=== PATIENT | female | born 1995 | race Caucasian/White ===

== ENCOUNTER 2017-07-25 13:48 | Emergency (ER) | payer OTHER ==
--- NOTE | 2017-07-25 13:57 | UC ---
Abdominal Pain Female HPI - HPI Summary HPI Summary: 21 YEAR OLD FEMALE PRESENTS WITH COMPLAINS OF RUQ AND VOMITTING AFTER DRINKING LAST NIGHT. - History of Current Complaint Chief Complaint: UCGeneralIllness Stated Complaint: VOMITING Time Seen by Provider: 07/25/17 13:56 Hx Obtained From: Patient Hx Last Menstrual Period: 07/09/17 Onset/Duration: Lasting Hours Severity Initially: Moderate Severity Currently: Moderate Pain Scale Used: 0-10 Numeric - 5 Location: Discrete At: RUQ Character: Aching Aggravating Factor(s): Food Alleviating Factor(s): Nothing Allergies/Adverse Reactions: Allergies Allergy/AdvReac Type Severity Reaction Status Date / Time No Known Allergies Allergy Verified 07/25/17 13:50 Home Medications: Home Medications Loestrin 11/13- 1-20 mg-Mcg 1 tab PO DAILY 07/25/17 [History Confirmed 07/25/17 ] PMH/Surg Hx/FS Hx/Imm Hx Previously Healthy: Yes - Surgical History Surgical History: None - Social History Alcohol Use: Occasionally Substance Use Type: None Smoking Status (MU): Never Smoked Tobacco Review of Systems Constitutional: Negative Skin: Negative Eyes: Negative ENT: Negative Respiratory: Negative Cardiovascular: Negative Gastrointestinal: Abdominal Pain, Vomiting - RUQ Genitourinary: Negative Motor: Negative Neurovascular: Negative Musculoskeletal: Negative Neurological: Negative Psychological: Negative All Other Systems Reviewed And Are Negative: Yes Physical Exam Triage Information Reviewed: Yes Vital Signs: Initial Vital Signs Temp 36.6 C 07/25/17 13:52 Pulse 110 07/25/17 13:52 Resp 20 07/25/17 13:52 Pulse Ox 100 07/25/17 13:52 Vital Signs Reviewed: Yes Eye Exam: Normal ENT Exam: Normal Dental Exam: Normal Neck exam: Normal Neck: Positive: 1 Respiratory Exam: Normal Cardiovascular Exam: Normal Abdomen Description: Positive: Other: - RUQ PAIN Musculoskeletal Exam: Normal Neurological Exam: Normal Psychological Exam: Normal Skin Exam: Normal Abd Pain Female Course/Dx - Differential Dx/Diagnosis Provider Diagnoses: VOMITTING. RUQ PAIN Discharge - Discharge Plan Condition: Stable Disposition: HOME Prescriptions: Ondansetron ODT TAB* [Zofran 4 MG Odt TAB*] 4 mg PO Q8H PRN #9 tab.odt PRN Reason: Nausea - Refractory Patient Education Materials: Acute Nausea and Vomiting (ED) Referrals: Non Staff,Doctor [Primary Care Provider] - Additional Instructions: PATIENT SUGGESTED TO GO TO ER FOR WORSENING RUQ PAIN.
[2017-07-25] MEDS ORDERED: Ondansetron TAB* 4 MG PO ONE (14:20)
[2017-07-25] MEDS ORDERED: Ondansetron ODT TAB* 4 MG PO ONE ×2 (14:28→14:29)
[2017-07-25] MEDS ORDERED: NS 0.9% 1000 ML* 1,000 ML IV ONE (15:34)
[2017-07-25 15:53] VITALS: BP 110/55
== END 2017-07-25 16:25 | disposition home or self-care (01) ==
LOC: UCEAST 13:48
DX: R11.10 Vomiting, unspecified (principal); R52 Pain, unspecified; Z32.02 Encounter for pregnancy test, result negative
CPT/HCPCS: 81003; 84702; 96360; 99202; A9270-GY; G0463

== ENCOUNTER 2017-07-25 16:53 | Emergency (ER) | payer OTHER ==
[2017-07-25 19:03] LABS: Hematocrit 37 % (35-47); Hemoglobin 12.7 g/dl (12.0-16.0); Mean Corpuscular HGB Conc 34 g/dl (31-36); Mean Corpuscular Hemoglobin 30 pg (27-31); Mean Corpuscular Volume 88 fL (80-97); Mean Platelet Volume 7 um3 (7.4-10.4); Red Blood Count 4.23 10^6/ul (4.0-5.4); Red Cell Distribution Width 13 % (10.5-15); White Blood Count 19.6 10^3/ul (3.5-10.8)
[2017-07-25 19:17] LABS: Albumin 4.4 g/dL (3.2-5.2); C Reactive Protein 6.27 mg/L (< 5.00); EGFR African American 119.9 (>60); EGFR Non-African American 93.2 (>60); Globulin 3.3 g/dL (2-4); Potassium 3.6 mmol/L (3.5-5.0); Total Bilirubin 0.4 mg/dL (0.2-1.0); Total Protein 7.7 g/dL (6.4-8.9)
[2017-07-25] MEDS ORDERED: NS 0.9% 1000 ML* 1,000 ML IV ONE (20:53)
[2017-07-25] MEDS ORDERED: Lidocaine 2% VISCOUS* 15 ML UDC PO ONE (21:04)
[2017-07-25] MEDS ORDERED: Al Hydrox/Mg Hydrox/Simet LIQ* 30 ML UDC PO ONE (21:04)
--- NOTE | 2017-07-25 21:43 | RAD ---
HISTORY: Right upper quadrant pain COMPARISONS: None TECHNIQUE: Multiple transverse and longitudinal ultrasound images were obtained of the right upper quadrant of the abdomen using grayscale and color Doppler imaging. FINDINGS: LIVER: The liver is normal in shape, size, contour, and echogenicity. There are no focal parenchymal masses. There is normal hepatopedal flow of the portal vein on Doppler imaging. BILIARY TREE: There is no intrahepatic or extrahepatic biliary dilatation. The common duct measures 0.3 cm. GALLBLADDER: The gallbladder is well-visualized. There is no cholelithiasis, gallbladder wall thickening, pericholecystic fluid, or sonographic Myers sign. PANCREAS: The head of the pancreas is unremarkable. The tail of the pancreas is not well visualized secondary to overlying bowel gas. RIGHT KIDNEY: The right kidney is normal in shape, size, contour, and echogenicity. There is no hydronephrosis or nephrolithiasis. The right kidney measures 11.9 x 4.2 x 3.7 cm. AORTA AND IVC: The aorta and IVC are unremarkable. FLUID: There are no pleural effusions. There is no free fluid within the hepatorenal recess. OTHER FINDINGS: None. IMPRESSION: NO ACUTE SONOGRAPHIC PATHOLOGY OF THE VISUALIZED PORTION OF THE ABDOMEN
[2017-07-25] MEDS ORDERED: Omeprazole CAP* 20 MG PO ONE (21:49)
[2017-07-25] MEDS ORDERED: Ondansetron TAB* 4 MG PO ONE (21:59)
[2017-07-25 22:48] LABS: Urine Bacteria Absent (Absent); Urine Bilirubin Negative (Negative); Urine Glucose Negative (Negative); Urine Nitrite Negative (Negative)
[2017-07-25] MEDS ORDERED: Sulfamethox/Trimethoprim DS 800/160* TAB PO ONE (22:56)
[2017-07-25 23:31] VITALS: BP 112/60
--- NOTE | 2017-07-30 13:25 | ED ---
Akosua Castellanos Edward, scribed for Patrick Shepherd MD on 07/25/17 at 1833 . Abdominal Pain/Female - HPI Summary HPI Summary: 21 y/o female presents to ED sent from [facility] c/o chronic, intermittent RUQ ABD pain starting one year ago that resurfaced last night. The pain is aggravated when the pt sits down for a long time. Pt states that one year ago she bent down and felt something pop out; the pt then pushes it back in each time. Pt has had this occur 2-3 times in the past year. Pt also c/o N/V starting 01:00 last night and into the morning after EtOH consumption. N/V alleviated with Zofran at Urgent Care. Pt states that she had "never felt sick like that before ". Pt is still nauseous currently and the pain is described as discomfort. - History of Current Complaint Chief Complaint: EDAbdPain Stated Complaint: VOMITING Hx Obtained From: Patient Hx Last Menstrual Period: 07/09/17 Onset/Duration: Lasting Weeks - Chronic - 2-3x this past year Timing: Intermittent Episode Lasting Severity Currently: Severe Pain Intensity: 8 Pain Scale Used: 0-10 Numeric Location: Discrete At: RUQ Aggravating Factor(s): Other: - Sitting down for a long time Alleviating Factor(s): Nothing Associated Signs and Symptoms: Positive: Dizzy, Nausea, Vomiting Allergies/Adverse Reactions: Allergies Allergy/AdvReac Type Severity Reaction Status Date / Time No Known Allergies Allergy Verified 07/25/17 13:50 PMH/Surg Hx/FS Hx/Imm Hx Previously Healthy: No Respiratory History: Denies: Other Respiratory Problems/Disorders - Denies tuberculosis Opthamlomology History: Denies: Hx Legally Blind - Surgical History Surgery Procedure, Year, and Place: N/A Infectious Disease History: No Infectious Disease History: Denies: Hx Clostridium Difficile, Hx Hepatitis, Hx Human Immunodeficiency Virus (HIV), Hx of Known/Suspected MRSA, Hx Shingles, Hx Tuberculosis, Hx Known/ Suspected VRE, Hx Known/Suspected VRSA, History Other Infectious Disease, Traveled Outside the [place] in Last 30 Days - Family History Known Family History: Negative: Cardiac Disease, Hypertension, Diabetes - Social History Occupation: Student Lives: Dormitory/Roommates Alcohol Use: Occasionally Hx Substance Use: No Substance Use Type: Reports: None Hx Tobacco Use: No Smoking Status (MU): Never Smoked Tobacco Review of Systems Negative: Fever, Chills Negative: Erythema Negative: Sore Throat Negative: Chest Pain Negative: Shortness Of Breath, Cough Positive: Abdominal Pain, Vomiting, Nausea Negative: dysuria, hematuria Negative: Myalgia, Edema Negative: Rash Neurological: Other - Dizziness All Other Systems Reviewed And Are Negative: Yes Physical Exam - Summary Physical Exam Summary: Constitutional: Well-developed, Well-nourished, Alert. (-) Distressed Skin: Warm, Dry HENT: Normocephalic; Atraumatic Eyes: Conjunctiva normal Neck: Musculoskeletal ROM normal neck. (-) JVD, (-) Stridor, (-) Tracheal deviation Cardio: Rhythm regular, rate normal, Heart sounds normal; Intact distal pulses; The pedal pulses are 2+ and symmetric. Radial pulses are 2+ and symmetric. (-) Murmur Pulmonary/Chest wall: Effort normal. (-) Respiratory distress, (-) Wheezes, (-) Rales Abd: Soft, Epigastric tenderness most consistent with gastritis, (-) Distension , (-) Guarding, (-) Rebound. No palpable hernia. Musculoskeletal: (-) Edema Lymph: (-) Cervical adenopathy Neuro: Alert, Oriented x3 Psych: Mood and affect Normal Triage Information Reviewed: Yes Vital Signs On Initial Exam: Initial Vitals Temp Pulse Resp BP Pulse Ox 97.8 F 65 16 116/63 100 07/25/17 16:55 07/25/17 16:55 07/25/17 16:55 07/25/17 16:55 07/25/17 16:55 Vital Signs Reviewed: Yes Diagnostics - Vital Signs Vital Signs Temp Pulse Resp BP Pulse Ox 07/25/17 16:55 97.8 F 65 16 116/63 100 - Laboratory Result Diagrams: 07/25/17 18:51 07/25/17 18:51 Lab Statement: Any lab studies that have been ordered have been reviewed, and results considered in the medical decision making process. - Ultrasound No standard instances Ultrasound Interpretation: No Acute Changes - GALLBLADDER US - NO ACUTE SONOGRAPHIC PATHOLOGY OF THE VISUALIZED PORTION OF THE ABDOMEN Ultrasound Interpretation Completed By: Radiologist Re-Evaluation - Re-Evaluation 1 Re-Evaluation Time: 22:00 Change: Improved Comment: Discuss plan of care Abdominal Pain Fem Course/Dx - Course Course Of Treatment: 21 y/o female presents to ED sent from [facility] c/o chronic, intermittent RUQ ABD pain starting one year ago that resurfaced last night. The pain is aggravated when the pt sits down for a long time. Pt states that one year ago she bent down and felt something pop out; the pt then pushes it back in each time. Pt has had this occur 2-3 times in the past year. Pt also c/o N/V starting 01:00 last night and into the morning after EtOH consumption. N/V alleviated with Zofran at Urgent Care. Pt states that she had "never felt sick like that before". Pt is still nauseous currently and the pain is described as discomfort. GALLBLADDER US - NO ACUTE SONOGRAPHIC PATHOLOGY OF THE VISUALIZED PORTION OF THE ABDOMEN. On re-eval, the pt is improved. Urine is contaminated. Due to recurrent vomiting, will treat pending cultures. Pt will be d/c home with f/u at [facility], recommended CT for the pt's hernia. - Diagnoses Provider Diagnoses: Gastritis, Ventral hernia, Pyuria Discharge - Discharge Plan Condition: Stable Disposition: HOME Prescriptions: Omeprazole CAP* [Prilosec CAP* 20 MG] 20 mg PO DAILY #7 cap. Sulfamethox/Trimethoprim DS* [Bactrim DS 800/160 TAB*] 1 tab PO BID #14 tab Patient Education Materials: Gastritis (ED), Ventral Hernia (ED) Forms: *School Release Referrals: [facility] - Chauncey VALDIVIA [Primary Care Provider] - 2 Days (PLEASE F/U IN [address] FOR YOUR ABDOMINAL HERNIA) The documentation as recorded by the Akosua farr Edward accurately reflects the service I personally performed and the decisions made by , Patrick Shepherd MD.
== END 2017-07-25 23:30 | disposition home or self-care (01) ==
LOC: ED 16:53
DX: K29.70 Gastritis, unspecified, without bleeding (principal); K43.9 Ventral hernia without obstruction or gangrene; N39.0 Urinary tract infection, site not specified
CPT/HCPCS: 36415; 76705; 80053; 81003; 81015; 83605; 83690; 85025; 86140; 96360; 99284; A9270-GY